=== PATIENT | female | born 1965 | race Caucasian/White ===

== ENCOUNTER 2019-06-03 04:28 | Inpatient (IN) ==
[2019-06-03] MEDS ORDERED: MoRPHine SULFATE 4 MG/ML 1 ML CARP\\VIAL IV STA ×2 (04:43→06:39)
[2019-06-03] MEDS ORDERED: ONDANSETRON INJ 2 MG/ML 2 ML VIAL IV STA (04:43)
[2019-06-03] MEDS ORDERED: KETOROLAC 30 MG/ML VIAL IV STA (04:44)
[2019-06-03] MEDS ORDERED: SODIUM CHLORIDE 0.9% 1000ML 1,000 ML IV SCH (04:45)
[2019-06-03 04:59] LABS: Basophils # (auto) 0.03 K/uL (0-0.2); Basophils % (auto) 0.4 %; Eosinophils # (auto) 0.07 K/uL (0-0.5); Hematocrit (blood only) 36.2 % (37-47); Hemoglobin 12.5 g/dL (12.0-16.0); Immature Granulocytes # (auto) 0.01 K/uL (0.00-0.02); Immature Granulocytes % (auto) 0.1 %; Lymphocytes # (auto) 2.72 K/uL (1.2-3.4); Lymphocytes % (auto) 39.4 %; Mean Corpuscular Hgb Conc 34.5 g/dL (32-36); Mean Corpuscular Volume 86.6 fL (80-100); Monocytes # (auto) 0.47 K/uL (0.11-0.59); Monocytes % (auto) 6.8 %; Neutrophils % (auto) 52.3 %; Platelet Count 261 K/uL (130-400); RDW Coefficient of Variation 12.9 % (11.5-14.5); RDW Standard Deviation 41.2 fL (36.4-46.3); Red Blood Count 4.18 M/uL (4.2-5.4)
[2019-06-03 05:17] LABS: Albumin Level 3.8 gm/dl (3.4-5.0); BUN Creatinine Ratio 17.8 (10-20); Calcium 8.5 mg/dl (8.5-10.1); Creatinine Clr Calc Pharmacy 79.7 ml/min; Est GFR (African American) 103.1; Est GFR (Non-African American) 88.9; Potassium 3.5 mmol/L (3.5-5.1)
[2019-06-03 05:19] LABS: Albumin Globulin Ratio 1.1 (0.9-2); Bilirubin,Total 0.3 mg/dl (0.2-1); Globulin 3.6 gm/dl (2.5-4.0); Total Protein 7.4 gm/dl (6.4-8.2)
[2019-06-03] MEDS ORDERED: cefTRIAXone SODIUM 2,000 MG/70 ML BAG IV STA (05:52)
[2019-06-03 06:34] LABS: Appearance Urine Clear (Clear); Bilirubin Urine Negative (Negative); Blood Urine Negative (Negative); Color Urine Yellow; Glucose Urine UA Negative (Negative); Ketones Urine Negative (Negative); Leukocyte Esterase Urine Negative (Negative); Nitrite Urine Negative (Negative); Protein Urine Negative (Negative); Specific Gravity Urine 1.021 (1.000-1.030); Urobilinogen Urine Negative (Negative); pH Urine 6.5 (4.5-7.5)
--- NOTE | 2019-06-03 07:04 | CT Scan Report ---
CT OF THE ABDOMEN AND PELVIS WITHOUT CONTRAST CLINICAL HISTORY: Right flank pain. Right lower quadrant pain. COMPARISON STUDY: No previous studies for comparison. TECHNIQUE: Axial images of the abdomen and pelvis were obtained without IV contrast. Images were revi ewed in the axial, sagittal, and coronal planes. Automated exposure control was utilized for the federico dy. A dose lowering technique was utilized adhering to the principles of ALARA. FINDINGS: Lung bases are clear. A 7 mm x 6 mm proximal right ureteral calculus results in moderate ri ght hydronephrosis. There is mild right perinephric infiltration. No additional urinary calculi are i dentified. A water attenuation 1.5 cm lesion within the lower pole of the left kidney is suboptimally assessed on this unenhanced exam but favors a cyst. Unenhanced images of the liver, spleen, adrenal glands and pancreas are normal. There is no biliary or pancreatic ductal dilatation. No evidence for a bowel obstruction. The appendix is normal. There is no ascites or lymphadenopathy. No suspicious os seous lesions are noted. IMPRESSION: 7 mm x 6 mm proximal right ureteral calculus which results in moderate right hydronephro sis. Electronically signed by: Nsaeem Samuel M.D. 06/03/2019 7:02 AM
--- NOTE | 2019-06-03 07:32 | History and Physical Report ---
DATE OF ADMISSION: 06/03/2019 CHIEF COMPLAINT: Right flank pain. HISTORY OF PRESENT ILLNESS: This 54-year-old female with past medical history significant for hyperlipidemia, history of kidney stones in the past, small stone which she passed on her own, presents with severe right flank pain since 3:00 a.m. today. The pain is radiating to her groins associated with nausea. Denies any fever, chills. No burning micturition, no hematuria. Currently, resting comfortably and hemodynamically stable. Imaging studies unofficial report show a 7 mm right kidney stone with hydronephrosis. Denies any headache, no dizziness, no blurred vision, no earache, no runny nose, no sore throat, no difficulty swallowing. No night sweats. No recent weight gain, weight loss. No cough, no chest pain or shortness of breath. No diarrhea, no constipation, no blood in stools, no black stools. No easy bruising or easy bleeding. No rash, no swelling in the legs, ambulates okay. ALLERGIES: BACTRIM. PAST MEDICAL HISTORY: As mentioned above. PAST SURGICAL HISTORY: , left arm fracture. MEDICATIONS: She is on Crestor 5 mg daily. FAMILY HISTORY: Significant for mother had breast cancer. Father had adenocarcinoma, unknown primary, diabetes, CAD, hypertension, hyperlipidemia. Paternal grandfather had heart disorder. Paternal grandmother had diabetes. SOCIAL HISTORY: Former smoker, quit in 1991. Smoked 1 pack a day for 8 years. Alcohol, social drinking. No drug use. REVIEW OF SYMPTOMS: As per HPI. Rest of review of systems negative. PHYSICAL EXAMINATION: GENERAL: The patient is of moderate build, not in acute distress. VITAL SIGNS: Temperature 36.5, pulse 61, respiratory rate 16, blood pressure 163/90, oxygen 98% on room air. HEENT: No pallor, no icterus. Pupils equal, round, and reactive to light. NECK: No JVD, no neck masses, no carotid bruits. CARDIOVASCULAR: S1, S2 heard, regular rate and rhythm, no murmur, no gallop. RESPIRATORY SYSTEM: Normal AP diameter. No accessory muscle use. No wheezing, no crackles. ABDOMEN: Soft, bowel sounds present. Right CVA tenderness present, no guarding, no rigidity. CENTRAL NERVOUS SYSTEM: Cranial nerves II-XII grossly intact. Nonfocal. EXTREMITIES: No edema, no erythema. LABORATORY DATA: WBC 6.9, hemoglobin 12.5, hematocrit 36.2, platelets 261. Sodium 141, potassium 3.5, chloride 107, bicarbonate 27, BUN 13, creatinine 0.7, serum glucose 117, calcium 8.5, total bilirubin 0.3, AST 15, ALT 25, alkaline phosphatase 72, lipase 134. Urinalysis is pending. CT of abdomen and pelvis, unofficial report, 7 mm right kidney stone with moderate hydronephrosis. ASSESSMENT AND PLAN: This is a 54-year-old who presents with right renal colic. 1. Right renal colic, unofficial report of CAT scan shows a 7 mm right kidney stone with moderate hydronephrosis. We will follow the official report. The patient is afebrile, no leukocytosis. question of perinephric stranding. Rocephin was given in the ER. We will continue the patient on IV fluids, n.p.o., pain control, IV antibiotics. Follow UA.Urology consult for possible cystoscopy. Monitor on medical floor. 2. Hyperlipidemia. Continue statin. 3. Deep vein thrombosis prophylaxis, sequential compression devices. DISPOSITION: Admit to medical floor. Expect discharge home and follow with family doctor. Level 1 full code. MTDD
[2019-06-03] MEDS ORDERED: ACETAMINOPHEN 325 MG TAB PO PRN (07:52)
[2019-06-03] MEDS: SODIUM CHLORIDE 0.9% 1000ML 1,000 ML IV SCH ×3 (08:22→23:07)
[2019-06-03] MEDS: ONDANSETRON INJ 2 MG/ML 2 ML VIAL IV PRN ×2 (08:36→23:44)
[2019-06-03] MEDS: MoRPHine SULFATE 4 MG/ML 1 ML CARP\\VIAL IV PRN ×4 (08:36→21:40)
[2019-06-03] MEDS ORDERED: ROSUVASTATIN CALCIUM 5 MG TAB PO SCH (09:00)
--- NOTE | 2019-06-03 12:04 | XRay Report ---
KUB CLINICAL HISTORY: Right ureteral stone. FINDINGS: 2 AP supine abdominal radiographs are correlated with abdominal CT performed the same 2018. There is a nonobstructed abdominal bowel gas pattern. Mild colonic fecal retention is observed. There is unchanged appearance of a right proximal ureteral stone as compared to today's earlier CT s can. This projects below the right transverse process of L3. No additional calcifications are clearly seen projecting over either kidney. Phleboliths are observed in the pelvis. The bony structures appe ar intact. IMPRESSION: A 6 mm right proximal ureteral stone is unchanged from today's CT scan. Electronically signed by: Robert Vasquez M.D. 06/03/2019 12:02 PM
--- NOTE | 2019-06-03 14:12 | Urology Consultation ---
Date of Consultation June 03, 2019 Assessment & Plan (1) Calculus of proximal right ureter: 54yo F with 7mm prox right ureteral stone, moderate hydronephrosis. Pain controlled with IV medications currently. KUB - great visibility. Nontoxic appearing on evaluation today. We discussed options for ureteroscopy vs ESWL tomorrow. Pt is agreeable to proceed with right ESWL tomorrow. Fleets Enema to be given at 8PM tonight, low fat diet for dinner then NPO after midnight. We will plan for early AM discharge to accommodate OR time, [facility] We will arrange for KUB prior to discharge from hospital. I spoke with Dr. Portillo in person and she is agreeable to plan for early AM discharge to accomodate. Thank you for allowing us to participate in Ms. Cash's acute care. Outpatient followup has already been arranged. History of Present Illness Reason for Consultation: ureteral stone Requesting Physician: Dr Portillo Attending Physician: Aury Portillo MD History of Present Illness 54yo F with PMHx hyperlipidemia and stones, admitted through [facility] today for sever right flank pain, radiating to groin with associated nausea. at bedside at time of evaluation. CT reveals 7x6mm prox right ureteral stone with moderate hydro, mild perinephric stranding. No further renal or ureteral stones. She is requiring IV pain control for relief, nontoxic appearing. WBC and Cr within normal limits. UA negative, not suspicious for UTI. Hx of 3mm stone with spontaneous passage approx 7 years ago. No further issues. Denies hematuria or dysuria. Denies n/v - light appetite for now. No other issues or concerns. Allergies Allergy/AdvReac Type Severity Reaction Status Date / Time Bactrim Allergy Intermediate RASH Verified 11/25/14 06:25 sulfamethoxazole Allergy Intermediate RASH Verified 06/03/19 05:18 trimethoprim Allergy Intermediate RASH Verified 06/03/19 05:18 Home Medications Home Medications Medication Instructions Recorded Confirmed Type rosuvastatin 5 mg PO DAILY 06/03/19 06/03/19 History Patient History Medical History Hyperlipidemia Social History Preferred Language: Albanian Communication Ability: Effective [employer] Trailers Required: No Beliefs That Will Affect Care: None Current Living Situation: Spouse Feels Safe at Home: Yes Smoking Status: Former smoker Second Hand Exposure: No ; Hx Alcohol Use: Yes Hx Substance Use: No Review of Systems Review of Systems: Constitutional: Denies fever, chills, sweats, malaise Eyes: Denies problem reported ENMT: Denies dizziness Resp: Denies cough, Denies shortness of breath CV: Denies JVD GI: Denies nausea/vomiting : + flank pain, denies dysuria, urgency, frequency, hematuria MS: Denies swelling, stiffness Integ: Denies rash, erythema Neuro: Denies falls, weakness Psych: Denies behavior change Endo: Denies polyphagia, polydipsia Heme: Denies easy bleeding Physical Exam Constitutional: no acute distress and not ill appearing Eyes: no nystagmus ENMT: Ears: no hearing impairment Neck: trachea midline Respiratory: no respiratory distress and no cough Cardiovascular: Vessels: no JVD Chest (Breasts): Chest: normal inspection of chest Gastrointestinal (Abdomen): Inspection/Auscultation: abdomen not distended and no abdominal edema Percussion/Palpation: abdomen soft; abdomen nontender Musculoskeletal: Head/Neck/Chest: normocephalic and head atraumatic Skin: no rashes, warm and dry Neurologic: awake; not confused and not obtunded Psychiatric: Orientation: alert and oriented x 3 Eye Contact: good eye contact Affect: no depressed affect Lymphatic: no lymphadenopathy and no lymphedema Results & Data Vital Signs (Past 12 Hours) Vital Signs Temp Pulse Pulse Resp BP BP Pulse Ox 06/03/19 07:58 36.4 C L 52 L 18 165/89 H 99 06/03/19 07:13 61 15 111/59 L 06/03/19 06:02 61 16 163/90 H 98 06/03/19 05:13 58 L 14 165/90 H 97 06/03/19 04:33 36.5 C 77 20 156/87 H 97
--- NOTE | 2019-06-03 15:52 | XRay Report ---
XR chest 1V portable CLINICAL HISTORY: preop preoperative evaluation COMPARISON STUDY: No previous studies for comparison. FINDINGS: The bones soft tissues and hemidiaphragms are normal. The cardiomediastinal silhouette is n ormal. The lungs are clear. The pulmonary vasculature is normal. IMPRESSION: Negative chest. The above report was generated using voice recognition software. It may contain grammatical, syntax or spelling errors. Electronically signed by: Dalton Garcia M.D. 06/03/2019 3:51 PM
--- NOTE | 2019-06-03 16:13 | Hospitalist Progress Note ---
Date of Service June 03, 2019 Assessment & Plan (1) Calculus of proximal right ureter: Presented with severe right-sided back pain The abdomen pelvis shows obstructed 7 mm right approximate ureteric stone with mild right-sided hydroureteronephrosis No evidence of infection or sepsis, afebrile hemodynamically stable, normal white count, renal function remains within normal limits Urology consulted, appreciate input Patient will benefit with lithotripsy procedure Scheduled for outpatient lithotripsy procedure at the [facility] at 8 AM Patient needs to be discharged from [facility] at 7 AM, need to arrive at [facility] no later than 7:30 AM Patient has been requiring intermittent IV morphine for intractable renal colic Started with IV emetics for nausea Will observe patient overnight -continue IV fluids pain control Patient will be discharged in a.m. Patient will go from [facility] to [facility] tomorrow morning Diet ordered by urology, Will be n.p.o. past midnight for lithotripsy plus /minus ureteroscopy-[facility] physician group urology team tomorrow at 8 a.m. 06/04/2019 Patient's discharge paperwork was done Discharge order placed for 7 AM in the morning-to avoid any delay for the patient to proceed for the planned urologic procedure Plan of care updated to the patient by both myself and the urology team CODE STATUS: Full code DVT prophylaxis: SCD and teds, avoid anticoagulation as patient is scheduled for elective urologic procedure tomorrow morning Disposition: Discharge at 7 AM tomorrow morning DC paperwork, discharge order already scheduled Family physician follow-up with Dr. Velazquez in a week Urology follow-up post procedure as per protocol Subjective Continues to have left flank pain, ureteric colic, getting relief with current pain medication regimen, no fever chills Did not noted any blood in urine Nausea has resolved after adequate pain control Appreciate input from urology Patient will have urology procedure scheduled at 8:00 tomorrow at [facility] Patient will stay in hospital overnight as requiring intermittent IV pain medication for pain control Plan to discharge patient at 7 AM. Need to arrive at the [facility] no later than 7:30 AM, for scheduled lithotripsy procedure for right- sided obstructed ureteric stone at 8 AM tomorrow 06/04/2019 Physical Exam Constitutional: WD/WN, vitals as above + acute distress (in Moderate distress secondary to right flank pain ) Eyes: PERRL, conjunctivae normal, anicteric sclerae ENMT: external ear and nose normal, oropharynx normal Neck: trachea midline, no thyromegaly Respiratory: normal respiratory effort, lungs clear to auscultation Cardiovascular: RRR, no murmur, no edema Gastrointestinal (Abdomen): Inspection/Auscultation: normal bowel sounds Percussion/Palpation: + abdomen tender (Right CVA tenderness) and abdomen soft Right-sided flank pain/positive CVA tenderness Musculoskeletal: no cyanosis or clubbing, extremities motor strength 5/5 Skin: no rashes, warm and dry Neurologic: PERRL, EOMI, accommodation nl, no face palsy, no dysarthria Psychiatric: A+Ox3, euthymic affect Results & Data Vital Signs (Past 12 Hours) Vital Signs Temp Pulse Pulse Resp BP BP Pulse Ox 06/03/19 15:34 37.0 C 64 16 147/77 H 96 06/03/19 07:58 36.4 C L 52 L 18 165/89 H 99 06/03/19 07:13 61 15 111/59 L 06/03/19 06:02 61 16 163/90 H 98 06/03/19 05:13 58 L 14 165/90 H 97 06/03/19 04:33 36.5 C 77 20 156/87 H 97
[2019-06-03] MEDS ORDERED: PROMETHAZINE HCL 12.5 MG in SODIUM CHLORIDE 0.9% 50 ML IV PRN (16:53)
--- NOTE | 2019-06-04 00:34 | Emergency Department Note ---
History of Present Illness General Chief complaint: Flank Pain Stated complaint: R SIDE FLANK PAIN,NAUSEA Time Seen by Provider: 06/03/19 04:36 History of Present Illness Maximum Pain Intensity: 7 This is a 54-year-old female presenting to the emergency department for evaluation of right side abdominal pain over the past 2 days. She had a small amount of pain yesterday, which was rated at a low level. She states tonight the pain is constant and much worse, rating the discomfort a 7/10. She does have some nausea without vomiting. No fevers, chills, chest pain, chest tightness, shortness of breath. She feels like she has been using the bathroom as normal. She does have a history of kidney stones in the past and feels this may be similar. She has not had significant improvement of symptoms of pain with [id number] analgesics. 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 Attendant Required: No Beliefs That Will Affect Care: None Current Living Situation: Spouse Feels Safe at Home: Yes Smoking Status: Former smoker Second Hand Exposure: No ; Hx Alcohol Use: Yes Hx Substance Use: No Review of Systems A total of 10 systems reviewed and were otherwise negative Physical Exam Vital Signs Vital Signs - 24 hr 06/03/19 04:33 06/03/19 05:13 06/03/19 06:02 Temperature 36.5 C Temperature Source Oral Sepsis Recent Fever Within 48 Hours No Sepsis Action Taken by Nursing No Action Required Pulse Rate 77 Pulse Rate [Finger] 58 L 61 Pulse Rhythm Regular Pulse Strength Normal Respiratory Rate 20 14 16 Respiratory Effort / Characteristics Non-Labored Spontaneous Respiratory Depth Normal Blood Pressure 156/87 H Blood Pressure [Left Arm] 165/90 H 163/90 H Blood Pressure Mean 110 Blood Pressure Mean [Left Arm] 115 114 Blood Pressure Position Sitting Pulse Oximetry 97 97 98 Oxygen Delivery Method Room Air Room Air Room Air VITALS: Vitals are noted on the nurse's note and reviewed by myself. Vital signs stable. GENERAL: Well-developed, well-nourished, white female who appears moderately uncomfortable on exam. HEART: Regular rate and rhythm without murmurs gallops or rubs. LUNGS: Clear to auscultation bilaterally without wheezes, rales or rhonchi. No retractions or accessory muscle use. ABDOMEN: Positive normal bowel sounds x 4. Soft, nontender, without masses or organomegaly. No guarding or rebound tenderness. No CVA tenderness. No rash. MUSCULOSKELETAL: No muscle atrophy, erythema, or edema noted. Full range of motion in all extremities. NEURO: Patient was alert and oriented to person place and time. CN II through XII grossly intact. SKIN: The skin was without rashes, erythema, edema, or bruising. Capillary refill less than 2 seconds. Course Administered Medications Acetaminophen (Tylenol) 650 mg PO Q4H PRN PRN Reason: pain/fever Stop: 07/03/19 07:51 Last Admin: 06/03/19 23:44 Dose: 650 mg Documented by: [id number] Sodium Chloride (Nss 1000ml) 1,000 mls @ 125 mls/hr IV .Q8H ANNIE Stop: 07/03/19 07:51 Last Admin: 06/03/19 23:07 Dose: 125 mls/hr Documented by: [id number] Infusion: 06/03/19 23:07 Dose: 125 mls/hr Documented by: [id number] Admin: 06/03/19 15:32 Dose: 125 mls/hr Documented by: [id number] Infusion: 06/03/19 15:32 Dose: 125 mls/hr Documented by: [id number] Admin: 06/03/19 08:22 Dose: 125 mls/hr Documented by: [id number] Promethazine HCl 12.5 mg/ (Sodium Chloride) 50.5 mls @ 202 mls/hr IV Q6H PRN PRN Reason: Nausea And Vomiting Stop: 07/03/19 16:52 Last Infusion: 06/03/19 19:08 Dose: 0 mls/hr Documented by: [id number] Admin: 06/03/19 17:50 Dose: 202 mls/hr Documented by: [id number] Morphine Sulfate (Morphine Sulfate) 3 mg IV Q3H PRN PRN Reason: Pain Stop: 06/17/19 07:51 Last Admin: 06/03/19 21:40 Dose: 3 mg Documented by: [id number] Admin: 06/03/19 17:43 Dose: 3 mg Documented by: [id number] Admin: 06/03/19 13:38 Dose: 3 mg Documented by: [id number] Admin: 06/03/19 08:36 Dose: 3 mg Documented by: [id number] Ondansetron HCl (Zofran) 4 mg IV Q6H PRN PRN Reason: Nausea Stop: 07/03/19 07:51 Last Admin: 06/03/19 23:44 Dose: 4 mg Documented by: [id number] Admin: 06/03/19 08:36 Dose: 4 mg Documented by: [id number] Rosuvastatin Calcium (Crestor) 5 mg PO DAILY ANNIE Stop: 07/03/19 08:59 Last Admin: 06/03/19 08:55 Dose: 5 mg Documented by: [id number] Discontinued Medications Sodium Chloride (Nss 1000ml) 1,000 mls @ 999 mls/hr IV .Q1H1M ANNIE Stop: 06/03/19 05:45 Last Infusion: 06/03/19 05:50 Dose: 0 mls/hr Documented by: [id number] Admin: 06/03/19 04:48 Dose: 999 mls/hr Documented by: [id number] Ceftriaxone Sodium (Rocephin) 2,000 mg in 70 mls @ 140 mls/hr IV NOW STA Stop: 06/03/19 06:21 Last Infusion: 06/03/19 06:34 Dose: 0 mls/hr Documented by: [id number] Admin: 06/03/19 06:02 Dose: 140 mls/hr Documented by: [id number] Ketorolac Tromethamine (Toradol) 30 mg IV NOW STA Stop: 06/03/19 04:45 Last Admin: 06/03/19 04:49 Dose: 30 mg Documented by: [id number] Morphine Sulfate (Morphine Sulfate) 4 mg IV NOW STA Stop: 06/03/19 04:44 Last Admin: 06/03/19 04:49 Dose: 4 mg Documented by: [id number] Morphine Sulfate (Morphine Sulfate) 4 mg IV NOW STA Stop: 06/03/19 06:40 Last Admin: 06/03/19 06:42 Dose: 4 mg Documented by: [id number] Ondansetron HCl (Zofran) 4 mg IV NOW STA Stop: 06/03/19 04:44 Last Admin: 06/03/19 04:49 Dose: 4 mg Documented by: [id number] Medical Decision Making Differential Diagnosis Differential diagnosis: Etiologies such as shingles, pyelonephritis/UTI, renal colic, appendicitis, diverticulitis, mesenteric ischemia, torsion, aortic pathology, infections, inflammatory bowel disease, bowel obstruction, PUD, biliary pathology, as well as others were entertained. Laboratory Data Result diagrams: 06/03/19 04:50 06/03/19 04:50 Lab Results 06/03/19 06/03/19 06/03/19 Range/Units 04:43 04:50 04:50 WBC 6.90 (4.8-10.8) K/uL RBC 4.18 L (4.2-5.4) M/uL Hgb 12.5 (12.0-16.0) g/dL Hct 36.2 L (37-47) % MCV 86.6 (80-100) fL MCH 29.9 (25-34) pg MCHC 34.5 (32-36) g/dL RDW Std Deviation 41.2 (36.4-46.3) fL RDW Coeff of Neelam 12.9 (11.5-14.5) % Plt Count 261 (130-400) K/uL MPV 9.0 (7.4-10.4) fL Immature Gran % (Auto) 0.1 % Neut % (Auto) 52.3 % Lymph % (Auto) 39.4 % [place] % (Auto) 6.8 % Eos % (Auto) 1.0 % Baso % (Auto) 0.4 % Immature Gran # (Auto) 0.01 (0.00-0.02) K/uL Neut # (Auto) 3.60 (1.4-6.5) K/uL Lymph # (Auto) 2.72 (1.2-3.4) K/uL [place] # (Auto) 0.47 (0.11-0.59) K/uL Eos # (Auto) 0.07 (0-0.5) K/uL Baso # (Auto) 0.03 (0-0.2) K/uL Sodium 141 (136-145) mmol/L Potassium 3.5 (3.5-5.1) mmol/L Chloride 107 (98-107) mmol/L Carbon Dioxide 27 (21-32) mmol/L Anion Gap 7.0 (3-11) BUN 13 (7-18) mg/dl Creatinine 0.76 (0.6-1.2) mg/dl Est Cr Clr Drug Dosing 79.7 ml/min Est GFR ( Amer) 103.1 Est GFR (Non-Af Amer) 88.9 BUN/Creatinine Ratio 17.8 (10-20) Glucose 179 H (70-99) mg/dl Calcium 8.5 (8.5-10.1) mg/dl Total Bilirubin 0.3 (0.2-1) mg/dl AST 15 (15-37) U/L ALT 25 (12-78) U/L Alkaline Phosphatase 72 (45-117) U/L Total Protein 7.4 (6.4-8.2) gm/dl Albumin 3.8 (3.4-5.0) gm/dl Globulin 3.6 (2.5-4.0) gm/dl Albumin/Globulin Ratio 1.1 (0.9-2) Lipase 134 (73-393) U/L Urine Color Urine Appearance (Clear) Urine pH (4.5-7.5) Ur Specific [place] (1.000-1.030) Urine Protein (Negative) Urine Glucose (UA) (Negative) Urine Ketones (Negative) Urine Blood (Negative) Urine Nitrite (Negative) Urine Bilirubin (Negative) Urine Urobilinogen (Negative) Ur Leukocyte Esterase (Negative) Hepatitis C Ab Screen Neg (Neg) 06/03/19 Range/Units 06:02 WBC (4.8-10.8) K/uL RBC (4.2-5.4) M/uL Hgb (12.0-16.0) g/dL Hct (37-47) % MCV (80-100) fL MCH (25-34) pg MCHC (32-36) g/dL RDW Std Deviation (36.4-46.3) fL RDW Coeff of Neelam (11.5-14.5) % Plt Count (130-400) K/uL MPV (7.4-10.4) fL Immature Gran % (Auto) % Neut % (Auto) % Lymph % (Auto) % [place] % (Auto) % Eos % (Auto) % Baso % (Auto) % Immature Gran # (Auto) (0.00-0.02) K/uL Neut # (Auto) (1.4-6.5) K/uL Lymph # (Auto) (1.2-3.4) K/uL [place] # (Auto) (0.11-0.59) K/uL Eos # (Auto) (0-0.5) K/uL Baso # (Auto) (0-0.2) K/uL Sodium (136-145) mmol/L Potassium (3.5-5.1) mmol/L Chloride (98-107) mmol/L Carbon Dioxide (21-32) mmol/L Anion Gap (3-11) BUN (7-18) mg/dl Creatinine (0.6-1.2) mg/dl Est Cr Clr Drug Dosing ml/min Est GFR ( Amer) Est GFR (Non-Af Amer) BUN/Creatinine Ratio (10-20) Glucose (70-99) mg/dl Calcium (8.5-10.1) mg/dl Total Bilirubin (0.2-1) mg/dl AST (15-37) U/L ALT (12-78) U/L Alkaline Phosphatase (45-117) U/L Total Protein (6.4-8.2) gm/dl Albumin (3.4-5.0) gm/dl Globulin (2.5-4.0) gm/dl Albumin/Globulin Ratio (0.9-2) Lipase (73-393) U/L Urine Color Yellow Urine Appearance Clear (Clear) Urine pH 6.5 (4.5-7.5) Ur Specific [place] 1.021 (1.000-1.030) Urine Protein Negative (Negative) Urine Glucose (UA) Negative (Negative) Urine Ketones Negative (Negative) Urine Blood Negative (Negative) Urine Nitrite Negative (Negative) Urine Bilirubin Negative (Negative) Urine Urobilinogen Negative (Negative) Ur Leukocyte Esterase Negative (Negative) Hepatitis C Ab Screen (Neg) Imaging Data Radiologist's Impression: CT OF THE ABDOMEN AND PELVIS WITHOUT CONTRAST CLINICAL HISTORY: Right flank pain. Right lower quadrant pain. COMPARISON STUDY: No previous studies for comparison. TECHNIQUE: Axial images of the abdomen and pelvis were obtained without IV contrast. Images were reviewed in the axial, sagittal, and coronal planes. Automated exposure control was utilized for the study. A dose lowering technique was utilized adhering to the principles of ALARA. FINDINGS: Lung bases are clear. A 7 mm x 6 mm proximal right ureteral calculus results in moderate right hydronephrosis. There is mild right perinephric infiltration. No additional urinary calculi are identified. A water attenuation 1.5 cm lesion within the lower pole of the left kidney is suboptimally assessed on this unenhanced exam but favors a cyst. Unenhanced images of the liver, spleen, adrenal glands and pancreas are normal. There is no biliary or pancreatic ductal dilatation. No evidence for a bowel obstruction. The appendix is normal. There is no ascites or lymphadenopathy. No suspicious osseous lesions are noted. IMPRESSION: 7 mm x 6 mm proximal right ureteral calculus which results in moderate right hydronephrosis. MDM Narrative Physical exam and history were performed. Nursing notes, EMR, and Medication List were personally reviewed. Patient appears to have flank pain bringing her to the ER tonight. On examination she appears comfortable. IV access was established and labs were obtained. The patient was hydrated with normal saline and given IV morphine, IV Zofran, and IV Toradol. CT scan was performed due to the patient's symptoms and past history. The patient's blood work is as above and was reviewed. Patient's blood work is as above and was reviewed. She does not have a significantly elevated white blood cell count, gross anemia, bandemia, or significant electrolyte imbalance. Transaminases are not diagnostic. CT scan was reviewed by myself and radiology and appears to show a 7 mm proximal right ureteral stone with moderate hydro. This would correlate with the patient's discomfort. There was some concern for stranding around the kidney and I did provide the patient IV Rocephin prior to urine returning. I discussed the patient findings and care options at length. Due to her proximal stone that appears obstructed with hydronephrosis do not feel she is well for discharge home. She is currently comfortable on IV analgesics be continued. I did discuss the case with the on-call hospitalist. Please see their dictation for further patient course, plan, and disposition. The chart was completed utilizing [employer] Voice Recognition Software. Grammatical errors, random word insertions, pronoun errors, and incomplete sentences are an occasional consequence of this system due to software limitations, ambient noise, and hardware issues. Any formal questions or concerns about the content, text, or information contained within the body of this dictation should be directly addressed to the provider for clarification. . Impression & Plan Calculus of proximal right ureter Discharge Plan Visit Data *Final* Discharge Date/Time: 06/03/19 07:37 Chief Complaint: Flank Pain Stated Complaint: R SIDE FLANK PAIN,NAUSEA ED Provider: Gabriella Vernon ED Midlevel Provider: Justin Flores Discharge Problem: Calculus of proximal right ureter Patient Disposition: Admitted As Inpatient Discharge Instructions Interventions: ED Discharge Assessment Last Done: 06/03/19 07:37
[2019-06-04 05:45] LABS: Basophils # (auto) 0.02 K/uL (0-0.2); Basophils % (auto) 0.2 %; Eosinophils # (auto) 0.01 K/uL (0-0.5); Eosinophils % (auto) 0.1 %; Hematocrit (blood only) 31.7 % (37-47); Hemoglobin 10.8 g/dL (12.0-16.0); Immature Granulocytes # (auto) 0.02 K/uL (0.00-0.02); Immature Granulocytes % (auto) 0.2 %; Lymphocytes # (auto) 1.88 K/uL (1.2-3.4); Lymphocytes % (auto) 16.9 %; Mean Corpuscular Hgb Conc 34.1 g/dL (32-36); Mean Corpuscular Volume 87.1 fL (80-100); Mean Platelet Volume 8.5 fL (7.4-10.4); Monocytes # (auto) 0.98 K/uL (0.11-0.59); Monocytes % (auto) 8.8 %; Neutrophils # (auto) 8.24 K/uL (1.4-6.5); Neutrophils % (auto) 73.8 %; Platelet Count 218 K/uL (130-400); RDW Coefficient of Variation 13.2 % (11.5-14.5); RDW Standard Deviation 42.8 fL (36.4-46.3); Red Blood Count 3.64 M/uL (4.2-5.4); White Blood Count 11.15 K/uL (4.8-10.8)
[2019-06-04 06:12] LABS: BUN Creatinine Ratio 12.4 (10-20); Calcium 7.9 mg/dl (8.5-10.1); Creatinine Clr Calc Pharmacy 51.3 ml/min; Est GFR (African American) 60.6; Est GFR (Non-African American) 52.2; Magnesium 1.8 mg/dl (1.8-2.4); Potassium 4.1 mmol/L (3.5-5.1)
[2019-06-04] MEDS: MoRPHine SULFATE 4 MG/ML 1 ML CARP\\VIAL IV PRN (06:41)
--- NOTE | 2019-06-04 07:22 | Discharge Summary ---
Date of Service June 04, 2019 Admission HPI Per Admitting Provider DICTATED BY: Pato Santos MD DATE OF ADMISSION: 06/03/2019 CHIEF COMPLAINT: Right flank pain. HISTORY OF PRESENT ILLNESS: This 54-year-old female with past medical history significant for hyperlipidemia, history of kidney stones in the past, small stone which she passed on her own, presents with severe right flank pain since 3:00 a.m. today. The pain is radiating to her groins associated with nausea. Denies any fever, chills. No burning micturition, no hematuria. Currently, resting comfortably and hemodynamically stable. Imaging studies unofficial report show a 7 mm right kidney stone with hydronephrosis. Denies any headache, no dizziness, no blurred vision, no earache, no runny nose, no sore throat, no difficulty swallowing. No night sweats. No recent weight gain, weight loss. No cough, no chest pain or shortness of breath. No diarrhea, no constipation, no blood in stools, no black stools. No easy bruising or easy bleeding. No rash, no swelling in the legs, ambulates okay. Principal Diagnosis RIGHT-SIDED OBSTRUCTED URETERIC STONE/RENAL COLIC Discharge Exam Constitutional WD/WN, vitals as above no acute distress (in Moderate distress secondary to right flank pain ) Eyes PERRL, conjunctivae normal, anicteric sclerae ENMT external ear and nose normal, oropharynx normal Neck trachea midline, no thyromegaly Respiratory normal respiratory effort, lungs clear to auscultation Cardiovascular RRR, no murmur, no edema Gastrointestinal (Abdomen) Inspection/Auscultation: normal bowel sounds Percussion/Palpation: + abdomen tender (Right CVA tenderness) and abdomen soft Musculoskeletal no cyanosis or clubbing, extremities motor strength 5/5 Skin no rashes, warm and dry Neurologic PERRL, EOMI, accommodation nl, no face palsy, no dysarthria Psychiatric A+Ox3, euthymic affect Discharge Data Allergies Allergy/AdvReac Type Severity Reaction Status Date / Time Bactrim Allergy Intermediate RASH Verified 11/25/14 06:25 sulfamethoxazole Allergy Intermediate RASH Verified 06/03/19 05:18 trimethoprim Allergy Intermediate RASH Verified 06/03/19 05:18 Consultations 06/03/19 05:58 ED Decision to Admit Stat 06/03/19 08:00 Consult Urology Routine Ordered Studies 06/03/19 04:43 CT abd pelvis wo con Urgent Hospital Course (1) Calculus of proximal right ureter: Presented with severe right-sided back pain The abdomen pelvis shows obstructed 7 mm right approximate ureteric stone with mild right-sided hydroureteronephrosis No evidence of infection or sepsis, afebrile hemodynamically stable, normal white count, renal function remains within normal limits Urology consulted, appreciate input Patient will benefit with lithotripsy procedure Scheduled for outpatient lithotripsy procedure at the [facility] at 8 AM Patient needs to be discharged from [facility] at 7 AM, need to arrive at [facility] no later than 7:30 AM Patient has been requiring intermittent IV morphine for intractable renal colic Started with IV emetics PRN for nausea pt was observe overnight -continue IV fluids pain control Patient will go from [facility] to [facility] tomorrow morning Diet ordered by urology, has been n.p.o. past midnight for lithotripsy plus /minus ureteroscopy-[facility] physician group urology team tomorrow at 8 a.m. 06/04/2019 Pt is Discharged this morning CODE STATUS: Full code DVT prophylaxis: SCD and teds, avoid anticoagulation as patient is scheduled for elective urologic procedure tomorrow morning Disposition: Discharged at 7 AM today DC paperwork, discharge order already scheduled Family physician follow-up with Dr. Velazquez in a week Urology follow-up post procedure as per protocol Total Time Total Time Spent Total Time Spent (In Minutes): appox 35 min Total Time Includes: Discharge Planning and Medication Reconciliation Discharge Plan Discharge Items Patient Disposition: Home - Self-Care Reason For Visit: R SIDE FLANK PAIN,NAUSEA Discharge Diagnosis: RIGHT-SIDED OBSTRUCTED URETERIC STONE/RENAL COLIC Discharge Goals: Decrease discomfort and Diagnostic testing Activity: Resume your previous activity Non-emergency contact: Primary Care Provider Call non-emergency contact if: you have any medication questions Follow-up/Referrals: Eagle Huff MD [Physician] - Rosio Velazquez MD [Primary Care Provider] - (Hospital follow-up in 1 week) Diet: Regular Addtl Provider Instructions: Follow-up with urology as per recommendation after the procedure Hospital follow-up with family physician in 1 week, office will call with appointment Prescriptions: Continued rosuvastatin 5 mg tablet 5 mg PO DAILY RF: 0 Stand-Alone Forms: [facility] [place] Discharge Orders: Discharge Order (Routine); Ordered 06/03/19 Ordered By: Aury Portillo Admission Data Admit Date/Time: 06/03/19 06:25 Attending Provider: Aury Portillo Admit Provider: Pato Santos Primary Care Provider: Rosio Velazquez Other Providers: Pato Santos ; Eagle Huff Service: Surgical Services Other Interventions: Discharge Summary Assessment (RN) Last Done: 06/04/19 05:30 DC Date/Time DO NOT enter until pt leaves facility: 06/04/19 06:45
== END 2019-06-04 06:45 | disposition home or self-care (01) | DRG 694 ==
LOC: ED 04:28 → 3N 06:25
DX: N13.2 Hydronephrosis with renal and ureteral calculous obstruction; Z87.442 Personal history of urinary calculi; Z88.8 Allergy status to other drugs, medicaments and biological substances; E78.5 Hyperlipidemia, unspecified; Z88.2 Allergy status to sulfonamides; Z87.891 Personal history of nicotine dependence

== ENCOUNTER 2019-06-08 15:06 | Observation (INO) ==
[2019-06-08] MEDS ORDERED: KETOROLAC 30 MG/ML VIAL IV STA (15:31)
[2019-06-08] MEDS ORDERED: SODIUM CHLORIDE 0.9% 1000ML 1,000 ML IV ONE (15:31)
--- NOTE | 2019-06-08 15:39 | Emergency Department Note ---
History of Present Illness General Chief complaint: Kidney Stone Stated complaint: KIDNEY STONES Time Seen by Provider: 06/08/19 15:11 History of Present Illness Maximum Pain Intensity: 7 This 54-year-old female presents the ER with chief complaint of persistent right flank pain and now diffuse abdominal pain. The patient was seen in the emergency room on and had a 6 mm stone in the right proximal ureter. She had a lithotripsy performed on Friday to break up the stone. She has not visualized any stones when she has been straining her urine. The patient states that she has been on pain medication since and has not had a bowel movement since last Friday. She has been trying MiraLAX and stool softeners without any relief. She is passing some gas. She states that she lays on her left side it does help with the pain. She feels like her belly is "distended". Patient last took oxycodone at 3:30 AM. She took Tylenol at 7 AM. The patient had one episode of vomiting on Friday night. Home Medications Home Medications Medication Instructions Recorded Confirmed Type rosuvastatin 5 mg PO DAILY 06/03/19 06/08/19 History oxycodone-acetaminophen [Percocet] 1 tab PO Q6H PRN #20 tab 06/04/19 06/08/19 Rx acetaminophen [Tylenol Extra 500 mg PO QID PRN 06/08/19 06/08/19 History Strength] Allergies Allergy/AdvReac Type Severity Reaction Status Date / Time Bactrim Allergy Intermediate RASH Verified 11/25/14 06:25 sulfamethoxazole Allergy Intermediate RASH Verified 06/08/19 16:11 trimethoprim Allergy Intermediate RASH Verified 06/08/19 16:11 Past Med/Surg History Medical History Hyperlipidemia Surgical History delivery delivered (Acute) History of arthroscopy (Acute) left arm Social History Preferred Language: Khmer Communication Ability: Effective 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 Beliefs That Will Affect Care: None Current Living Situation: Spouse Feels Safe at Home: Yes Smoking Status: Former smoker Second Hand Exposure: No ; Hx Alcohol Use: Yes Hx Substance Use: No Review of Systems A total of 10 systems reviewed and were otherwise negative Physical Exam Vital Signs Vital Signs - 24 hr 06/08/19 15:07 Temperature 36.7 C Temperature Source Oral Sepsis Recent Fever Within 48 Hours No Sepsis Action Taken by Nursing No Action Required Pulse Rate 111 H Pulse Rhythm Regular Pulse Strength Normal Respiratory Rate 20 Respiratory Effort / Characteristics Non-Labored Spontaneous Respiratory Depth Normal Respiratory Pattern Regular Blood Pressure 139/85 Blood Pressure Mean 103 Blood Pressure Position Sitting Pulse Oximetry 96 Oxygen Delivery Method Room Air GENERAL: 54-year-old white female appears in no acute distress. MENTAL Status: Alert and oriented x3. MOUTH: Mucosa is moist NECK: Supple, no lymphadenopathy noted. No carotid bruits noted. LUNGS: Clear auscultation without wheezes rales or rhonchi. CARDIAC: Regular rate and rhythm without murmur. Pulses is full and equal throughout. BACK: No CVA tenderness noted. ABDOMEN: No audible bowel sounds on the left side. Right side bowel sounds were hypoactive. Soft, tenderness to palpation in the right flank area otherwise nontender to palpation without organomegaly or masses. EXTREMITIES: No cyanosis or edema noted. Course Administered Medications Discontinued Medications Sodium Chloride (Nss 1000ml) 1,000 mls @ 999 mls/hr IV .Q1H1M ONE Stop: 06/08/19 16:31 Last Admin: 06/08/19 15:51 Dose: 999 mls/hr Documented by: [id number] Ketorolac Tromethamine (Toradol) 30 mg IV NOW STA Stop: 06/08/19 15:32 Last Admin: 06/08/19 15:51 Dose: 30 mg Documented by: [id number] Medical Decision Making Differential Diagnosis Kidney stone, constipation, small bowel obstruction Medical Records Attestation: I reviewed the patient's medical records. Home Medications Current Medication List: was personally reviewed by me Imaging Data Attestation: I personally reviewed and interpreted this imaging study as follows: My Impression: Right ureteral calculi noted Radiologist's Impression: XR KUB/Abdomen 1 view CLINICAL HISTORY: Constipation, abdominal pain pain COMPARISON STUDY: 06/03/2019 FINDINGS: Nonobstructive bowel pattern. Moderate increase in fecal load within the ascending and proximal to mid transverse colonic region. 6 mm calculus of the proximal right ureter is unchanged and overlies the right transverse process of L3. Several pelvic vascular calcifications are unchanged. IMPRESSION: 1. Unchanged proximal right ureteral calculus. 2. Nonobstructive bowel pattern. 3. Moderate increase in fecal load of the proximal to mid colon. The above report was generated using voice recognition software. It may contain grammatical, syntax or spelling errors. Electronically signed by: Dalton Garcia M.D. 06/08/2019 4:07 PM Dictated: 06/08/19 1605 Transcribed: 06/08/19 1605 Blood Pressure Blood Pressure Findings: Normal blood pressure MDM Narrative The patient was evaluated. IV access was obtained. The patient was given 1 L normal saline wide open. She was given Toradol 30 mg IV. KUB was ordered interpreted by the radiologist and myself as above with a 6 mm stone still visible at the level of the L2 transverse process on the right. There is also moderate fecal load within the ascending and transverse colon. The patient was informed of the findings. Dr. Gay was consulted and stated that the patient should be admitted through medicine and placed n.p.o. after midnight and the hospital should consult them after admission. The hospitalist was consulted for admission. The patient will be admitted under CBC and differential, renal profile, LFTs, urinalysis were ordered. Impression & Plan Calculus of proximal right ureter, Intractable abdominal pain Discharge Plan Visit Data Chief Complaint: Kidney Stone Stated Complaint: KIDNEY STONES ED Provider: Silverio Rodriguez ED Midlevel Provider: Nae Garcia Discharge Problem: Calculus of proximal right ureter, Intractable abdominal pain Patient Disposition: Being Evaluated by Hospitalist Condition: Good Forms Stand Alone Forms: [facility], Important Visit Information Prescriptions Prescriptions: No Action rosuvastatin 5 mg tablet 5 mg PO DAILY RF: 0 oxycodone-acetaminophen [Percocet] 7.5-325 mg tablet 1 tab PO Q6H PRN (Reason: pain) Qty: 20 RF: 0 acetaminophen [Tylenol Extra Strength] 500 mg Tablet 500 mg PO QID PRN (Reason: Pain) RF: 0 Referrals Referrals: Rosio Velazquez MD [Primary Care Provider] -
--- NOTE | 2019-06-08 16:08 | XRay Report ---
XR KUB/Abdomen 1 view CLINICAL HISTORY: Constipation, abdominal pain pain COMPARISON STUDY: 06/03/2019 FINDINGS: Nonobstructive bowel pattern. Moderate increase in fecal load within the ascending and prox imal to mid transverse colonic region. 6 mm calculus of the proximal right ureter is unchanged and overlies the right transverse process of L3. Several pelvic vascular calcifications are unchanged. IMPRESSION: 1. Unchanged proximal right ureteral calculus. 2. Nonobstructive bowel pattern. 3. Moderate increase in fecal load of the proximal to mid colon. The above report was generated using voice recognition software. It may contain grammatical, syntax or spelling errors. Electronically signed by: Dalton Garcia M.D. 06/08/2019 4:07 PM
[2019-06-08 17:09] LABS: Basophils # (auto) 0.02 K/uL (0-0.2); Basophils % (auto) 0.2 %; Eosinophils # (auto) 0.05 K/uL (0-0.5); Eosinophils % (auto) 0.5 %; Hematocrit (blood only) 34.9 % (37-47); Immature Granulocytes # (auto) 0.01 K/uL (0.00-0.02); Immature Granulocytes % (auto) 0.1 %; Lymphocytes # (auto) 1.58 K/uL (1.2-3.4); Lymphocytes % (auto) 16.6 %; Mean Corpuscular Hemoglobin 29.6 pg (25-34); Mean Corpuscular Hgb Conc 34.4 g/dL (32-36); Mean Platelet Volume 8.6 fL (7.4-10.4); Monocytes # (auto) 0.78 K/uL (0.11-0.59); Monocytes % (auto) 8.2 %; Neutrophils # (auto) 7.09 K/uL (1.4-6.5); Neutrophils % (auto) 74.4 %; Platelet Count 243 K/uL (130-400); RDW Coefficient of Variation 12.5 % (11.5-14.5); Red Blood Count 4.06 M/uL (4.2-5.4); White Blood Count 9.53 K/uL (4.8-10.8)
[2019-06-08 17:27] LABS: Albumin Level 3.4 gm/dl (3.4-5.0); BUN Creatinine Ratio 9.5 (10-20); Calcium 8.8 mg/dl (8.5-10.1); Creatinine Clr Calc Pharmacy 58.3 ml/min; Est GFR (African American) 71.4; Est GFR (Non-African American) 61.6; Potassium 3.7 mmol/L (3.5-5.1)
[2019-06-08 17:29] LABS: Albumin Globulin Ratio 0.8 (0.9-2); Bilirubin,Total 0.5 mg/dl (0.2-1); Globulin 4.2 gm/dl (2.5-4.0); Total Protein 7.6 gm/dl (6.4-8.2)
--- NOTE | 2019-06-08 18:11 | History & Physical Report ---
Date of Service June 08, 2019 Assessment & Plan (1) Renal calculi: -Admit to [facility] -Patient presenting from home with reports of persistent right flank pain after undergoing lithotripsy on 06/04 for a 6 mm proximal right ureteral calculi -In the ED, KUB x-ray demonstrates unchanged right ureteral calculi -Renal function stable -UA does not suggest infection -Urology notified by the ED, planning on intervention tomorrow -IVF, pain control -N.p.o. after midnight (2) Constipation: -Likely due to narcotic use -Give Dulcolax tonight, start bowel regimen with MiraLAX and Colace tomorrow (3) Dyslipidemia: -Continue statin (4) DVT prophylaxis: -SCDs, ambulate History of Present Illness Chief Complaint: Right flank pain Primary Care Provider: Rosio Velazquez MD 54-year-old female who presents to the ED for evaluation of right flank pain. Patient was recently admitted to [facility] 06/03 through 06/04 after she was found to have a 6 mm proximal right ureteral calculi with moderate hydronephrosis. Patient underwent lithotripsy on 06/04 and patient was discharged the same day. Patient reports she has had continued pain since returning home. She denies hematuria or dysuria. Due to the pain, she has had nausea and one episode of vomiting. She denies hematemesis or coffee-ground emesis. No abdominal pain. No fevers or chills. She denies chest pain and shortness of breath. No lightheadedness, dizziness, diaphoresis, syncopal events. She reports constipation and has been taking MiraLAX and stool softeners however has not had a bowel movement. She reports that she is passing gas. In the ED, KUB shows unchanged 6 mm right ureteral calculus. Labs are unremarkable. Patient was given IVF and IV Toradol. Allergies Allergy/AdvReac Type Severity Reaction Status Date / Time Bactrim Allergy Intermediate RASH Verified 11/25/14 06:25 sulfamethoxazole Allergy Intermediate RASH Verified 06/08/19 16:11 trimethoprim Allergy Intermediate RASH Verified 06/08/19 16:11 Home Medications Home Medications Medication Instructions Recorded Confirmed Type rosuvastatin 5 mg PO DAILY 06/03/19 06/08/19 History oxycodone-acetaminophen [Percocet] 1 tab PO Q6H PRN #20 tab 06/04/19 06/08/19 Rx acetaminophen [Tylenol Extra 500 mg PO QID PRN 06/08/19 06/08/19 History Strength] Past Med/Surg History Medical History Dyslipidemia (Chronic) Surgical History History of (Chronic) Family History Mother Breast cancer Father Diabetes Heart disease Hypertension Social History Preferred Language: Arabic Communication Ability: Effective 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 Beliefs That Will Affect Care: None Current Living Situation: Spouse Other Information That Helps Us Care for You: No Feels Safe at Home: Yes Safety Concerns: Feels Safe At This Time Smoking Status: Former smoker Do You Dip or Chew Tobacco: No ; Second Hand Exposure: No ; Tobacco Cessation Education Requested by Patient: No Hx Alcohol Use: Yes Alcohol Intake Frequency: Rarely Hx Substance Use: No Review of Systems Review of Systems: ROS per HPI, all other systems reviewed and negative Physical Exam Constitutional: WD/WN, vitals as above Eyes: PERRL, conjunctivae normal, anicteric sclerae ENMT: external ear and nose normal, oropharynx normal Respiratory: normal respiratory effort, lungs clear to auscultation Cardiovascular: Rate/Rhythm: regular rate and regular rhythm Vessels: norm al peripheral pulses Extremities: no edema Gastrointestinal (Abdomen): normal bowel sounds, soft, nontender, no hepatosplenomegaly Musculoskeletal: no cyanosis or clubbing, extremities motor strength 5/5 Skin: no rashes, warm and dry Neurologic: PERRL, EOMI, accommodation nl, no face palsy, no dysarthria Psychiatric: A+Ox3, euthymic affect Genitourinary: no CVA tenderness Results & Data Vital Signs (Past 12 Hours) Vital Signs Temp Pulse Resp BP Pulse Ox 06/08/19 15:07 36.7 C 111 H 20 139/85 96 Laboratory Results Short CBC 06/08/19 Range/Units 16:54 WBC 9.53 (4.8-10.8) K/uL Hgb 12.0 (12.0-16.0) g/dL Hct 34.9 L (37-47) % Plt Count 243 (130-400) K/uL BMP 06/08/19 16:54 Sodium 139 Potassium 3.7 Chloride 105 Carbon Dioxide 28 BUN 10 Creatinine 1.03 Glucose 97 Calcium 8.8 Liver Function 06/08/19 Range/Units 16:54 Total Bilirubin 0.5 (0.2-1) mg/dl AST 10 L (15-37) U/L ALT 19 (12-78) U/L Alkaline Phosphatase 85 (45-117) U/L Albumin 3.4 (3.4-5.0) gm/dl Urine 06/08/19 Range/Units 17:56 Urine Color Yellow Urine Appearance Clear (Clear) Urine pH 7.0 (4.5-7.5) Ur Specific Leland 1.007 (1.000-1.030) Urine Protein Negative (Negative) Urine Glucose (UA) Negative (Negative) Diagnostic Findings KUB X-RAY IMPRESSION: 1. Unchanged proximal right ureteral calculus. 2. Nonobstructive bowel pattern. 3. Moderate increase in fecal load of the proximal to mid colon. Code Status & VTE Plan VTE Prophylaxis Plan VTE Prophylaxis will be ordered: Yes Supervising Physician Co-Signing Physician Notes Pt was seen and examined. Agreed with Marybeth SCHNEIDER exam, assessment and plan. 54-year-old female with PMH of dyslipidemia, renal calculi who presents to the ED for evaluation of right flank pain. Patient was recently admitted on 06/03 through 06/04 for renal calculi and had lithotripsy done. She said that since discharged she continues to have right flank pain. KUB done today showed unchanged proximal right ureteral calculus. Moderate increase in fecal load of the proximal to mid colon. Urology consulted and plan for intervention urology procedure. Will make NPO after midnight. Continue IVF fluid and pain control. MD Charley
[2019-06-08 18:23] LABS: Appearance Urine Clear (Clear); Bilirubin Urine Negative (Negative); Blood Urine Negative (Negative); Color Urine Yellow; Glucose Urine UA Negative (Negative); Ketones Urine Trace (Negative); Leukocyte Esterase Urine Negative (Negative); Nitrite Urine Negative (Negative); Protein Urine Negative (Negative); Specific Gravity Urine 1.007 (1.000-1.030); Urobilinogen Urine Negative (Negative)
[2019-06-08] MEDS ORDERED: OXYCODONE HCL IR 5 MG TAB (IMMEDIATE RELEASE) PO PRN (19:00)
[2019-06-08] MEDS ORDERED: MoRPHine SULFATE 4 MG/ML 1 ML CARP\\VIAL IV PRN (19:00)
[2019-06-08] MEDS ORDERED: BISACODYL 5 MG TABEC PO ONE (19:00)
[2019-06-08] MEDS: DOCUSATE SODIUM 100 MG CAP PO SCH (20:06)
[2019-06-08] MEDS: SODIUM CHLORIDE 0.9% 1000ML 1,000 ML IV SCH (20:06)
[2019-06-09] MEDS: SODIUM CHLORIDE 0.9% 1000ML 1,000 ML IV SCH ×3 (03:52→19:20)
[2019-06-09 07:11] LABS: Hemoglobin 11.2 g/dL (12.0-16.0); Mean Corpuscular Volume 85.8 fL (80-100); Mean Platelet Volume 8.1 fL (7.4-10.4); Platelet Count 232 K/uL (130-400); RDW Coefficient of Variation 12.9 % (11.5-14.5); Red Blood Count 3.73 M/uL (4.2-5.4); White Blood Count 8.26 K/uL (4.8-10.8)
[2019-06-09] MEDS: DOCUSATE SODIUM 100 MG CAP PO SCH ×2 (07:27→20:55)
[2019-06-09] MEDS: POLYETHYLENE (MIRALAX) 17 GM PACK PO SCH ×2 (07:28→10:55)
[2019-06-09 07:42] LABS: BUN Creatinine Ratio 12.3 (10-20); Calcium 8.3 mg/dl (8.5-10.1); Creatinine Clr Calc Pharmacy 54.6 ml/min; Est GFR (African American) 65.9; Est GFR (Non-African American) 56.9; Potassium 4.2 mmol/L (3.5-5.1)
--- NOTE | 2019-06-09 08:26 | Urology Consultation ---
Date of Consultation June 09, 2019 Assessment & Plan (1) Ureteral stone with hydronephrosis: 54yo F with persisting 7mm prox right ureteral stone, moderate hydronephrosis, failed outpatient ESWL. Again, pt is nontoxic with pain controlled at present time. No leukocytosis, with creatinine WNL. We discussed options for treatment, recommend moving forward with formal treatment. Pt is agreeable to proceed with cystoscopy, right retrograde pyelogram, right ureteroscopy, laser lithotripsy and basket stone extraction, with possible dilation and right ureteral stent placement tomorrow with Dr. Gay. Risks and benefits reviewed. Pt verbalizes understanding. Preop CXR and EKG completed last week. Will cover preo with IV ciprofloxacin. Okay for diet today then NPO after midnight. Please reconsult our service urgently if patient develops fever >101F, intractable pain or vomiting. History of Present Illness Reason for Consultation: stone Requesting Physician: Dr. Whitehead Attending Physician: Rafaela Whitehead MD History of Present Illness 54yo F with hx of hyperlipidemia and stones was admitted through [facility] ED last evening with c/o persistent right flank pain. at bedside. She underwent ESWL procedure on Friday, pain persisted until it was no longer tolerable prompting her readmission. Unfortunately, her stone has not broken up on repeat KUB. She is nontoxic, well appearing on exam today. She denies f/c/n/v. Pain is currently controlled with IV pain control. Denies hematuria or LUTS. Allergies Allergy/AdvReac Type Severity Reaction Status Date / Time Bactrim Allergy Intermediate RASH Verified 11/25/14 06:25 sulfamethoxazole Allergy Intermediate RASH Verified 06/08/19 16:11 trimethoprim Allergy Intermediate RASH Verified 06/08/19 16:11 Home Medications Home Medications Medication Instructions Recorded Confirmed Type rosuvastatin 5 mg PO DAILY 06/03/19 06/08/19 History oxycodone-acetaminophen [Percocet] 1 tab PO Q6H PRN #20 tab 06/04/19 06/08/19 Rx acetaminophen [Tylenol Extra 500 mg PO QID PRN 06/08/19 06/08/19 History Strength] Patient History Medical History Dyslipidemia (Chronic) Surgical History History of (Chronic) Family History Mother Breast cancer Father Diabetes Heart disease Hypertension Social History Preferred Language: [place] Rican Communication Ability: Effective 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 Beliefs That Will Affect Care: None Current Living Situation: Spouse Other Information That Helps Us Care for You: No Feels Safe at Home: Yes Safety Concerns: Feels Safe At This Time Smoking Status: Former smoker Do You Dip or Chew Tobacco: No ; Second Hand Exposure: No ; Tobacco Cessation Education Requested by Patient: No Hx Alcohol Use: Yes Alcohol Intake Frequency: Rarely Hx Substance Use: No Review of Systems Review of Systems: All systems reviewed & are unremarkable except as noted in HPI & below Physical Exam Constitutional: no acute distress and not ill appearing Eyes: no nystagmus ENMT: Ears: no hearing impairment Neck: trachea midline Respiratory: no respiratory distress and no cough Cardiovascular: Vessels: no JVD Chest (Breasts): Chest: normal inspection of chest Gastrointestinal (Abdomen): Inspection/Auscultation: abdomen not distended and no abdominal edema Percussion/Palpation: abdomen soft; abdomen nontender Musculoskeletal: Head/Neck/Chest: normocephalic and head atraumatic Skin: no rashes, warm and dry Neurologic: awake; not confused and not obtunded Psychiatric: Orientation: alert and oriented x 3 Eye Contact: good eye contact Affect: no depressed affect Lymphatic: no lymphadenopathy and no lymphedema Results & Data Vital Signs (Past 12 Hours) Vital Signs Temp Pulse Resp BP Pulse Ox 06/09/19 07:12 36.8 C 70 16 127/78 96 06/08/19 23:20 37.0 C 81 16 124/74 96
--- NOTE | 2019-06-09 16:21 | Hospitalist Progress Note ---
Date of Service June 09, 2019 Assessment & Plan (1) Renal calculi: Present on admission with right flank pain and abdominal discomfort had lithotripsy on 06/04 for a 6 mm proximal right ureteral calculi KUB x-ray doen in the ER showed unchanged right ureteral calculi Urology on board and plan to proceed with cystoscopy, right retrograde pyelogram, right ureteroscopy, laser lithotripsy and basket stone extraction, with possible dilation and right ureteral stent placement Continue IVF Will make NPO after midnight (2) Constipation: Possible related to narcotic use Continue laxitive (3) Dyslipidemia: Continue statin (4) DVT prophylaxis: SCDs, ambulate Subjective Pt was seen and examined Sitting in bed with no distress Pt said that she feels fine She has been walking in the hallway Denies any chest pain, palpitation, dizziness and SOB Physical Exam Physical Exam: General- No acute distress Head- atraumatic Eyes- PERRL, EOMI, ENT- oropharynx clear Neck- supple, no JVD Lungs- clear to auscultation Heart- regular rhythm; no murmur Abdomen- normal bowel sounds, soft, nontender Extremities- no calf tenderness Neuro- alert, oriented x 3; PERRL, EOMI; no facial palsy; no dysarthria Skin- warm & dry Results & Data Vital Signs (Past 12 Hours) Vital Signs Temp Pulse Resp BP Pulse Ox 06/09/19 15:36 37 C 73 18 145/84 H 98 06/09/19 07:12 36.8 C 70 16 127/78 96
[2019-06-09] MEDS: ACETAMINOPHEN 325 MG TAB PO PRN (20:54)
[2019-06-10] MEDS: SODIUM CHLORIDE 0.9% 1000ML 1,000 ML IV SCH ×3 (03:12→21:08)
[2019-06-10] MEDS: ACETAMINOPHEN 325 MG TAB PO PRN ×2 (04:31→15:29)
[2019-06-10] MEDS ORDERED: CIPROFLOXACIN 400 MG/200 ML BAG IV SCH (06:00)
[2019-06-10] MEDS: DOCUSATE SODIUM 100 MG CAP PO SCH ×2 (08:01→21:08)
[2019-06-10] MEDS: POLYETHYLENE (MIRALAX) 17 GM PACK PO SCH (08:01)
--- NOTE | 2019-06-10 08:45 | Urology Progress Note ---
Date of Service June 10, 2019 Assessment & Plan (1) Ureteral stone with hydronephrosis: 54yo F with persisting 7mm prox right ureteral stone, moderate hydronephrosis, failed outpatient ESWL. Pt remains nontoxic and stable. She is NPO awaiting surgery today. Pt remains agreeable to proceed with cystoscopy, right retrograde pyelogram, right ureteroscopy, laser lithotripsy and basket stone extraction, with possible dilation and right ureteral stent placement tomorrow with Dr. Gay. Risks and benefits again reviewed. Pt verbalizes understanding. Preop CXR and EKG completed last week. Will cover preo with IV ciprofloxacin. Will see at time of OR. Subjective 54yo F with persisting 7mm prox right ureteral stone, moderate hydronephrosis, failed outpatient ESWL. She was able to get some sleep last evening, feels rested today. Pain remains controlled with IV medications. Does not feel she has passed any stone fragments. Afebrile with VSS overnight. Review of Systems 2 Review of Systems: All systems reviewed & are unremarkable except as noted in HPI & below Physical Exam Constitutional: no acute distress and not ill appearing Eyes: no nystagmus ENMT: Ears: no hearing impairment Neck: trachea midline Respiratory: no respiratory distress and no cough Cardiovascular: Vessels: no JVD Chest (Breasts): Chest: normal inspection of chest Gastrointestinal (Abdomen): Inspection/Auscultation: abdomen not distended and no abdominal edema Percussion/Palpation: abdomen soft; abdomen nontender Musculoskeletal: Head/Neck/Chest: normocephalic and head atraumatic Skin: no rashes, warm and dry Neurologic: awake; not confused and not obtunded Psychiatric: Orientation: alert and oriented x 3 Eye Contact: good eye contact Affect: no depressed affect Lymphatic: no lymphadenopathy and no lymphedema Results & Data Vital Signs (Past 12 Hours) Vital Signs Temp Pulse Resp BP BP Pulse Ox 06/10/19 08:00 36.6 C 66 17 113/73 97 06/09/19 23:22 36.8 C 68 16 134/80 97
[2019-06-10] MEDS ORDERED: MIDAZOLAM HCL 1 MG/ML 2ML VIAL ONE (10:41)
[2019-06-10] MEDS ORDERED: fentaNYL citrate 100 MCG/2 ML VIAL ONE (10:42)
--- NOTE | 2019-06-10 10:59 | History & Physical Bridge Note ---
Date of Service June 10, 2019 History & Physical Bridge Note I have examined the patient, reviewed the History & Physical and in the interval since the performance of the History & Physical I have noted the following changes of clinical significance: no changes noted
[2019-06-10] MEDS ORDERED: IOTHALAMATE MEGLUMINE II 17.2% 250 ML VIAL ONE (11:05)
[2019-06-10] MEDS ORDERED: DEXAMETHASONE SOD INJ 4 MG/ML VIAL ONE (11:12)
[2019-06-10] MEDS ORDERED: PROPOFOL IV EMULSION 10 MG/ML 20 ML VIAL IV ONE (11:12)
[2019-06-10] MEDS ORDERED: LIDOCAINE HCL 2% 2 ML VIAL/AMP(20MG/ML) INFIL ONE (11:12)
[2019-06-10] MEDS ORDERED: ONDANSETRON INJ 2 MG/ML 2 ML VIAL ONE (11:12)
--- NOTE | 2019-06-10 11:12 | Anesthesiology Consultation ---
Date of Service June 10, 2019 Assessment & Plan (1) Encounter for pre-operative examination: Chart Review Chart Review: Acceptable Risk for Surgery and Patient NOT seen in Pre Admission Testing Consults Requested none ASA ASA2 Proposed Anesthesia Anesthesia Type: General Risk / Benefits Reviewed With: PT / POA / Parent / Guardian, Accepts Plan and Informed Consent Obtained History Surgery Operation Date: 06/10/19 12:15 Proposed Procedures p Cystoscopy, Right Retrograde Pyelogram, Right Ureteroscopy, Laser Lithotripsy Basket Stone Extraction, Possible Dilation, Right Ureteral Stent Placement - Juan A Gay MD Height/Weight Height: 5 ft 2 in Weight: 72.8 kg Allergies Allergy/AdvReac Type Severity Reaction Status Date / Time Bactrim Allergy Intermediate RASH Verified 11/25/14 06:25 sulfamethoxazole Allergy Intermediate RASH Verified 06/08/19 16:11 trimethoprim Allergy Intermediate RASH Verified 06/08/19 16:11 Medications Home Medications Medication Instructions Recorded Confirmed Last Taken rosuvastatin 5 mg PO DAILY 06/03/19 06/08/19 06/08/19 08:00 oxycodone-acetaminophen [Percocet] 1 tab PO Q6H PRN #20 tab 06/04/19 06/08/19 06/08/19 03:30 acetaminophen [Tylenol Extra 500 mg PO QID PRN 06/08/19 06/08/19 06/08/19 07:00 Strength] ciprofloxacin HCl [Cipro] 500 mg PO BID #6 tab 06/10/19 Unknown oxycodone-acetaminophen 1 tab PO Q6H PRN #14 tab 06/10/19 Unknown phenazopyridine [Pyridium] 200 mg PO Q8H PRN #20 tab 06/10/19 Unknown potassium citrate [Urocit-K 10] 10 meq PO BID #60 tab 06/10/19 Unknown tamsulosin 0.4 mg PO HS #30 cap 06/10/19 Unknown Active Medications Generic Name Dose Route Start Last Admin Trade Name Freq PRN Reason Stop Dose Admin Acetaminophen 650 mg 06/08/19 19:00 06/10/19 04:31 Tylenol PO 07/08/19 18:59 650 mg Q4H PRN Administration pain/fever Docusate Sodium 100 mg 06/08/19 21:00 06/10/19 08:01 Colace PO 07/08/19 20:59 Not Given BID ANNIE Sodium Chloride 1,000 mls @ 125 mls/hr 06/08/19 19:15 06/10/19 11:04 Nss 1000ml IV 07/08/19 19:14 Infused .Q8H ANNIE Infusion Polyethylene Glycol 17 gm 06/09/19 09:00 06/10/19 08:01 Miralax Powder Packet PO 07/09/19 08:59 Not Given DAILY ANNIE NPO Date Last Intake of Fluids: 06/09/19 Time Last Intake of Fluids: 23:45 Date Last Intake of Solids: 06/09/19 Time Last Intake of Solids: 18:00 Past Medical History Medical History Dyslipidemia (Chronic) Exercise / Class Metabolic Activity II 4-5 Yardwork/Stairs/Walk up hill Past Family History Family History Mother Breast cancer Father Diabetes Heart disease Hypertension Past Surgical History Surgical History History of (Chronic) H/O lithotripsy Past Anesthesia History No Hx of Anesthesia Complications and No Family Hx of Anesthesia Complications History of PONV No Hx of PONV and No Hx of Motion Sickness Social History Smoking Status: Former smoker Do You Dip or Chew Tobacco: No Hx Alcohol Use: Yes alcohol intake frequency: holidays/special occasions only Hx Substance Use: No substance use type: does not use Review of Systems Patient denies active symptoms of GERD. Negative for chest pain or shortness of breath. Physical Exam Vital Signs Last Vital Signs Temp 37 C 06/10/19 10:17 Pulse 72 06/10/19 10:17 Resp 20 06/10/19 10:17 BP 148/82 H 06/10/19 10:17 Pulse Ox 98 06/10/19 10:17 Constitutional not obese ENMT Mouth: no TMJ abnormality and oral opening not small Thyromental Distance: > or= 3.5 Finger Breadths Mallampati Class: I Neck normal visual inspection; neck extension not limited Respiratory normal respiratory effort Auscultation: lungs clear to auscultation bilaterally Cardiovascular Rate/Rhythm: regular rate and regular rhythm Heart Sounds: no murmur Neurologic moves all extremities Psychiatric Orientation: alert and oriented x 3 Testing Laboratory Results 06/09/19 06:58 06/09/19 06:58 Urine Color Yellow 06/08/19 17:56 Urine Appearance Clear (Clear) 06/08/19 17:56 Urine pH 7.0 (4.5-7.5) 06/08/19 17:56 Ur Specific [place] 1.007 (1.000-1.030) 06/08/19 17:56 Urine Protein Negative (Negative) 06/08/19 17:56 Urine Glucose (UA) Negative (Negative) 06/08/19 17:56 Urine Ketones Trace (Negative) H 06/08/19 17:56 Urine Nitrite Negative (Negative) 06/08/19 17:56 Ur Leukocyte Esterase Negative (Negative) 06/08/19 17:56
--- NOTE | 2019-06-10 11:45 | Operative Report ---
Post Operative Report Pre & Post Diagnosis Operation Date: 06/10/19 12:15 Preoperative diagnosis: Refractory right upper ureteral stone. Postoperative diagnosis: Same. Procedure: Cystoscopy, right flexible ureteroscopy with laser lithotripsy, basket stone extraction and ureteral stent placement. Surgeon: Dr. Juan A Gay. Anesthesia: General anesthesia with laryngeal mask. Complications: None. Specimen sent pathology: Right ureteral stone fragments for chemical analysis. Drains left in place: 6 [place] 24 cm loop stent on the right-hand side in good position on fluoroscopy. Findings: Good stent position after completion of case. EBL: Minimal. Specimen sent to pathology: Right renal stone fragments for chemical analysis. Procedure Operation Date: 06/10/19 12:15 Brief history: 54-year-old female, known to our service with a history of difficulties with a right ureteral stone for approximately a week. She underwent extracorporeal shockwave lithotripsy to the stone less than a week ago without significant fragmentation or success and was readmitted for recurrent colic and pain. She is being brought to the operating room today for endoscopic management of her stone. Please see urology consultation and progress notes for further details. Intravenous ciprofloxacin is provided for antibiotic coverage and SCDs used for DVT prophylaxis. Procedure: Patient was properly identified and brought into the operative suite after identification of appropriate consent in the chart. General anesthesia with laryngeal mask was initiated and patient was prepped and draped in standard fashion for this procedure. Full timeout procedure was followed. 22 [place] rigid cystoscope was passed into the bladder under direct visualization and bladder was surveyed in its entirety demonstrating no intravesical lesions, papillary masses or calculi. Ureteral orifices were appreciated to be in the normal anatomic location bilaterally. Right-sided ureteral orifice was addressed using an open-ended catheter and a sensor tip wire was advanced up to level of the right kidney where was kept until the end of the case as a safety wire. This was followed by an Amplatz working wire and then a 12/14 [place] 28 cm ureteral access sheath. Fiberoptic flexible ureteroscope was advanced up to the level of the right kidney and complete pyeloscopy was performed. The patient's 7 mm ureteral stone was appreciated to be retropulsed into the kidney where it was visualized in the upper pole. Using a 200 m laser fiber this was fragmented into 3 distinct pieces which were able to be grasped using an open backed basket and removed from the patient intact. These were sent for chemical analysis. Pyeloscopy was repeated demonstrating no residual ureteral stones consistent with the patient's previous imaging findings including CT scan and KUB. Complete exit ureteroscopy was performed demonstrating some edema at the level of the patient's proximal stone impaction and tightness of the distal ureter without ureteral tears, tumors or residual calculi. Cystoscope was backloaded over the patient's safety wire and a 6 [place] 24 cm loop stent was advanced with a full coil being present at the level of the renal pelvis and redundant loops being present within the bladder. Hydronephrotic drip was appreciated. Bladder was drained and cystoscope was removed. Anesthesia was reversed and patient was transferred to the recovery room in stable condition. Follow-up CARE: Prescriptions for ciprofloxacin, Percocet and Pyridium are provided in the chart. Will arrange for outpatient cystoscopy and stent removal with KUB beforehand. Patient can be discharged home later today after taking p.o. diet as long as she is comfortable on oral medications. Care is discussed with the patient and the patient's perioperatively who vocalized good understanding of the treatment plan. Surgeon Juan A Gay MD Order Builder None Estimated Blood Loss 0 Findings Consistent with Post-Op Diagnosis Specimens Right renal stone fragments for chemical analysis Description of Procedure Cystoscopy, right flexible ureteroscopy with laser lithotripsy, basket stone extraction and ureteral stent placement. I attest to the content of the Intraoperative Record and any orders documented therein. Any exceptions are noted below.
[2019-06-10] MEDS ORDERED: BELLADONNA/OPIUM SUPP 60 MG SUPP PR ONE (12:11)
[2019-06-10] MEDS ORDERED: fentaNYL citrate 100 MCG/2 ML VIAL IV PRN (12:41)
[2019-06-10] MEDS ORDERED: ePHEDrine sulfate 50 MG/ML AMP IV PRN (12:41)
[2019-06-10] MEDS ORDERED: ONDANSETRON INJ 2 MG/ML 2 ML VIAL IV PRN (12:41)
[2019-06-10] MEDS ORDERED: ATROPINE SULFATE 0.1 MG/ML 10ML SYR IV PRN (12:41)
--- NOTE | 2019-06-10 12:59 | Anesthesiology Progress Note ---
Date of Service June 10, 2019 Anesthesia Post Procedure Vital Signs Vital Signs: Temp Pulse Pulse Pulse Resp BP BP 06/10/19 12:50 67 14 156/86 H 06/10/19 12:40 70 16 152/90 H 06/10/19 12:30 80 22 158/88 H 06/10/19 12:22 36.9 C 71 18 158/87 H 06/10/19 10:17 37 C 72 20 148/82 H 06/10/19 08:00 36.6 C 66 17 113/73 06/09/19 23:22 36.8 C 68 16 134/80 06/09/19 15:36 37 C 73 18 145/84 H Pulse Ox 06/10/19 12:50 96 06/10/19 12:40 98 06/10/19 12:30 100 06/10/19 12:22 100 06/10/19 10:17 98 06/10/19 08:00 97 06/09/19 23:22 97 06/09/19 15:36 98 Pain Intensity Abdomen: Pain Intensity: 3 Transfer of Care Handoff Completed per policy Notes Mental Status: alert / awake / arousable and participated in evaluation Patient Amnestic to Procedure: Yes Nausea / Vomiting: adequately controlled Pain: adequately controlled Airway Patency, RR, SpO2: stable & adequate BP & HR: stable & adequate Hydration State: stable & adequate Anesthetic Complications: no major complications apparent and Pt Satisfied with anesthetic care
[2019-06-10] MEDS ORDERED: PHENAZOPYRIDINE HCL 200 MG TAB PO PRN (13:11)
--- NOTE | 2019-06-10 13:12 | Fluoroscopy Report ---
FL KUB HISTORY: CYSTO, RIGHT RETROGRADE,LASER,STENT FLUOROSCOPY TIME: 43 seconds FINDINGS: 4 fluoroscopic spot images were submitted for review. Right-sided lithotripsy and right ure teral stent placement was performed in a retrograde fashion. The proximal portion of the stent is vis ualized and appears in good position. IMPRESSION: Fluoroscopy provided for right-sided lithotripsy and ureteral stent placement. Electronically signed by: Jamar Olguin M.D. 06/10/2019 1:11 PM
--- NOTE | 2019-06-10 18:35 | Hospitalist Progress Note ---
Date of Service June 10, 2019 Assessment & Plan (1) Renal calculi: Present on admission with right flank pain and abdominal discomfort had lithotripsy on 06/04 for a 6 mm proximal right ureteral calculi KUB x-ray doen in the ER showed unchanged right ureteral calculi S/P Cystoscopy, right flexible ureteroscopy with laser lithotripsy, basket stone extraction and ureteral stent placement performed today by Dr. Gay Continue IVF Will monitor (2) Constipation: Possible related to narcotic use Continue laxative (3) Dyslipidemia: Continue statin (4) DVT prophylaxis: SCDs, ambulate Disposition Will discharge home tomorrow Subjective Pt was seen and examined Lying in bed with no distress Pt said that she feels ok Just had procedure done today Denies any chest pain, palpitation and SOB Physical Exam Physical Exam: General- No acute distress Head- atraumatic Eyes- PERRL, EOMI, ENT- oropharynx clear Neck- supple, no JVD Lungs- clear to auscultation Heart- regular rhythm; no murmur Abdomen- normal bowel sounds, soft, nontender Extremities- no calf tenderness Neuro- alert, oriented x 3; PERRL, EOMI; no facial palsy; no dysarthria Skin- warm & dry Results & Data Vital Signs (Past 12 Hours) Vital Signs Temp Pulse Pulse Resp BP Pulse Ox 06/10/19 17:06 36.8 C 80 15 120/73 95 06/10/19 16:17 36.8 C 80 15 120/73 95 06/10/19 15:16 56 L 16 151/83 H 96 06/10/19 14:10 36.9 C 58 L 16 155/81 H 95 06/10/19 13:43 36.7 C 57 L 16 159/78 H 95 06/10/19 13:12 36.8 C 68 18 156/79 H 94 06/10/19 13:00 36.6 C 61 20 157/91 H 96 06/10/19 12:50 67 14 156/86 H 96 06/10/19 12:40 70 16 152/90 H 98 06/10/19 12:30 80 22 158/88 H 100 06/10/19 12:22 36.9 C 71 18 158/87 H 100 06/10/19 10:17 37 C 72 20 148/82 H 98 06/10/19 08:00 36.6 C 66 17 113/73 97
[2019-06-11] MEDS: SODIUM CHLORIDE 0.9% 1000ML 1,000 ML IV SCH (03:44)
[2019-06-11 07:57] LABS: Hemoglobin 10.2 g/dL (12.0-16.0); Mean Corpuscular Hemoglobin 29.4 pg (25-34); Mean Corpuscular Volume 86.5 fL (80-100); Mean Platelet Volume 9.2 fL (7.4-10.4); Platelet Count 251 K/uL (130-400); RDW Coefficient of Variation 12.7 % (11.5-14.5); RDW Standard Deviation 40.6 fL (36.4-46.3); Red Blood Count 3.47 M/uL (4.2-5.4)
--- NOTE | 2019-06-11 08:18 | Anesthesiology Progress Note ---
Date of Service June 11, 2019 Anesthesia Post Procedure Vital Signs Vital Signs: Temp Pulse Pulse Resp BP Pulse Ox 06/11/19 07:30 36.7 C 60 14 132/78 97 06/11/19 03:54 65 06/11/19 03:52 36.8 C 53 L 16 137/75 96 06/10/19 23:26 36.9 C 65 16 133/75 95 06/10/19 19:54 36.6 C 54 L 17 152/82 H 97 06/10/19 17:06 36.8 C 80 15 120/73 95 06/10/19 16:17 36.8 C 80 15 120/73 95 06/10/19 15:16 56 L 16 151/83 H 96 06/10/19 14:10 36.9 C 58 L 16 155/81 H 95 06/10/19 13:43 36.7 C 57 L 16 159/78 H 95 06/10/19 13:12 36.8 C 68 18 156/79 H 94 06/10/19 13:00 36.6 C 61 20 157/91 H 96 06/10/19 12:50 67 14 156/86 H 96 06/10/19 12:40 70 16 152/90 H 98 06/10/19 12:30 80 22 158/88 H 100 06/10/19 12:22 36.9 C 71 18 158/87 H 100 06/10/19 10:17 37 C 72 20 148/82 H 98 Pain Intensity Abdomen: Pain Intensity: 0 Notes Mental Status: alert / awake / arousable and participated in evaluation Patient Amnestic to Procedure: Yes Nausea / Vomiting: adequately controlled Pain: adequately controlled Airway Patency, RR, SpO2: stable & adequate BP & HR: stable & adequate Hydration State: stable & adequate Anesthetic Complications: no major complications apparent and Pt Satisfied with anesthetic care
[2019-06-11 08:31] LABS: BUN Creatinine Ratio 12.4 (10-20); Calcium 8.6 mg/dl (8.5-10.1); Creatinine Clr Calc Pharmacy 100.1 ml/min; Est GFR (African American) 119.8; Est GFR (Non-African American) 103.3; Potassium 3.6 mmol/L (3.5-5.1)
[2019-06-11] MEDS: POLYETHYLENE (MIRALAX) 17 GM PACK PO SCH (08:35)
[2019-06-11] MEDS: DOCUSATE SODIUM 100 MG CAP PO SCH (08:35)
--- NOTE | 2019-06-11 10:26 | Urology Progress Note ---
Date of Service June 11, 2019 Assessment & Plan (1) Ureteral stone with hydronephrosis: 54yo F POD #1 s/p cysto, right URS, LL, right stent placement. Pt is doing very well today and feels ready for discharge. Expected clinical course reviewed, all questions answered. Okay to discharge home from standpoint with abx, pain control. Stent removal appt made for 06/22 at 3:15PM at [address] - added to discharge instructions. Thank you for allowing us to participate in the acute care of Ms. Cash. Subjective 54yo F POD #1 s/p cysto, right URS, LL, right stent placement. Pt doing very well this AM. Ambulating in halls independently. States she feels much better, pain controlled. Tolerating PO without issue. Noticed some blood tinged urine, otherwise no major LUTS or stent irritation Review of Systems Review of Systems: All systems reviewed & are unremarkable except as noted in HPI & below Physical Exam Constitutional: no acute distress and not ill appearing Eyes: no nystagmus ENMT: Ears: no hearing impairment Neck: trachea midline Respiratory: no respiratory distress and no cough Cardiovascular: Vessels: no JVD Chest (Breasts): Chest: normal inspection of chest Gastrointestinal (Abdomen): Inspection/Auscultation: abdomen not distended and no abdominal edema Percussion/Palpation: abdomen soft; abdomen nontender Musculoskeletal: Head/Neck/Chest: normocephalic and head atraumatic Skin: no rashes, warm and dry Neurologic: awake; not confused and not obtunded Psychiatric: Orientation: alert and oriented x 3 Eye Contact: good eye contact Affect: no depressed affect Lymphatic: no lymphadenopathy and no lymphedema Results & Data Vital Signs (Past 12 Hours) Vital Signs Temp Pulse Pulse Resp BP Pulse Ox 06/11/19 07:30 36.7 C 60 14 132/78 97 06/11/19 03:54 65 06/11/19 03:52 36.8 C 53 L 16 137/75 96 06/10/19 23:26 36.9 C 65 16 133/75 95
--- NOTE | 2019-06-11 11:45 | Hospitalist Progress Note ---
Date of Service June 11, 2019 Assessment & Plan (1) Renal calculi: Present on admission with right flank pain and abdominal discomfort had lithotripsy on 06/04 for a 6 mm proximal right ureteral calculi KUB x-ray doen in the ER showed unchanged right ureteral calculi S/P day 1 Cystoscopy, right flexible ureteroscopy with laser lithotripsy, basket stone extraction and ureteral stent placement performed today by Dr. Gay Follow up with PCP for stent removal Clinically stable (2) Constipation: Possible related to narcotic use Continue laxative (3) Dyslipidemia: Continue statin (4) DVT prophylaxis: SCDs, ambulate Disposition Discharge home today Subjective Pt was seen and examined Lying in bed with no distress with at bedside Pt said that she feels fine Denies any chest pain, palpitation, dizziness and SOB Physical Exam Physical Exam: General- No acute distress Head- atraumatic Eyes- PERRL, EOMI, ENT- oropharynx clear Neck- supple, no JVD Lungs- clear to auscultation Heart- regular rhythm; no murmur Abdomen- normal bowel sounds, soft, nontender Extremities- no calf tenderness Neuro- alert, oriented x 3; PERRL, EOMI; no facial palsy; no dysarthria Skin- warm & dry Results & Data Vital Signs (Past 12 Hours) Vital Signs Temp Pulse Pulse Resp BP Pulse Ox 06/11/19 07:30 36.7 C 60 14 132/78 97 06/11/19 03:54 65 06/11/19 03:52 36.8 C 53 L 16 137/75 96
--- NOTE | 2019-06-12 07:54 | Discharge Summary ---
Date of Service June 11, 2019 Admission HPI Per Admitting Provider 54-year-old female who presents to the ED for evaluation of right flank pain. Patient was recently admitted to [facility] 06/03 through 06/04 after she was found to have a 6 mm proximal right ureteral calculi with moderate hydronephrosis. Patient underwent lithotripsy on 06/04 and patient was discharged the same day. Patient reports she has had continued pain since returning home. She denies hematuria or dysuria. Due to the pain, she has had nausea and one episode of vomiting. She denies hematemesis or coffee-ground emesis. No abdominal pain. No fevers or chills. She denies chest pain and shortness of breath. No lightheadedness, dizziness, diaphoresis, syncopal events. She reports constipation and has been taking MiraLAX and stool softeners however has not had a bowel movement. She reports that she is passing gas. In the ED, KUB shows unchanged 6 mm right ureteral calculus. Labs are unremarkable. Patient was given IVF and IV Toradol. Admission Exam Per Admitting Provider Constitutional: WD/WN, vitals as above Eyes: PERRL, conjunctivae normal, anicteric sclerae ENMT: external ear and nose normal, oropharynx normal Respiratory: normal respiratory effort, lungs clear to auscultation Cardiovascular: regular rate and regular rhythm Vessels: normal peripheral pulses Extremities: no edema Gastrointestinal: normal bowel sounds, soft, nontender, no hepatosplenomegaly Musculoskeletal: no cyanosis or clubbing, extremities motor strength 5/5 Skin: no rashes, warm and dry Neurologic: PERRL, EOMI, accommodation nl, no face palsy, no dysarthria Psychiatric: A+Ox3, euthymic affect Genitourinary: no CVA tenderness Principal Diagnosis Right ureteral stone s/p ureteroscopy, laser lithotripsy and stent placement. Dyslipidemia Discharge Exam General- No acute distress Head- atraumatic Eyes- PERRL, EOMI, ENT- oropharynx clear Neck- supple, no JVD Lungs- clear to auscultation Heart- regular rhythm; no murmur Abdomen- normal bowel sounds, soft, nontender Extremities- no calf tenderness Neuro- alert, oriented x 3; PERRL, EOMI; no facial palsy; no dysarthria Skin- warm & dry Discharge Data Allergies Allergy/AdvReac Type Severity Reaction Status Date / Time Bactrim Allergy Intermediate RASH Verified 11/25/14 06:25 sulfamethoxazole Allergy Intermediate RASH Verified 06/08/19 16:11 trimethoprim Allergy Intermediate RASH Verified 06/08/19 16:11 Consultations 06/08/19 16:45 ED Decision to Admit Stat 06/08/19 19:00 Consult Urology Routine Procedures Performed Operation Date: 06/10/19 12:15 Actual Procedures p Cystoscopy, Right Flexible Ureteroscopy, Laser Lithotripsy, Basket Stone Extraction, (Right) - Juan A Gay MD s Right Ureteral Stent Placement(Right) - Juan A Gay MD Ordered Studies 06/10/19 10:00 FL fluoroscopy <1hr Routine 06/10/19 12:15 FL KUB Routine FL KUB HISTORY: CYSTO, RIGHT RETROGRADE,LASER,STENT FLUOROSCOPY TIME: 43 seconds FINDINGS: 4 fluoroscopic spot images were submitted for review. Right-sided lithotripsy and right ureteral stent placement was performed in a retrograde fashion. The proximal portion of the stent is visualized and appears in good position. IMPRESSION: Fluoroscopy provided for right-sided lithotripsy and ureteral stent placement. Electronically signed by: Jamar Olguin M.D. 06/10/2019 1:11 PM Dictated: 06/10/19 1310 Transcribed: 06/10/19 1310 XR KUB/Abdomen 1 view CLINICAL HISTORY: Constipation, abdominal pain pain COMPARISON STUDY: 06/03/2019 FINDINGS: Nonobstructive bowel pattern. Moderate increase in fecal load within the ascending and proximal to mid transverse colonic region. 6 mm calculus of the proximal right ureter is unchanged and overlies the right transverse process of L3. Several pelvic vascular calcifications are unchanged. IMPRESSION: 1. Unchanged proximal right ureteral calculus. 2. Nonobstructive bowel pattern. 3. Moderate increase in fecal load of the proximal to mid colon. The above report was generated using voice recognition software. It may contain grammatical, syntax or spelling errors. Electronically signed by: Dalton Garcia M.D. 06/08/2019 4:07 PM Dictated: 06/08/19 1605 Transcribed: 06/08/19 1605 Hospital Course (1) Renal calculi: Present on admission with right flank pain and abdominal discomfort had lithotripsy on 06/04 for a 6 mm proximal right ureteral calculi KUB x-ray doen in the ER showed unchanged right ureteral calculi S/P day 1 Cystoscopy, right flexible ureteroscopy with laser lithotripsy, basket stone extraction and ureteral stent placement performed today by Dr. Gay Follow up with PCP for stent removal Clinically stable (2) Constipation: Possible related to narcotic use Continue laxative (3) Dyslipidemia: Continue statin (4) DVT prophylaxis: SCDs, ambulate Disposition Discharge home today Total Time Total Time Spent Total Time Spent (In Minutes): 35 minutes Total Time Includes: Examination of the Patient, Discharge Planning, Medication Reconciliation, Communication With Other Providers and Other Discharge Plan Discharge Items Patient Disposition: Home - Self-Care Reason For Visit: RENAL CALCULI Discharge Diagnosis: Right ureteral stone s/p ureteroscopy, laser lithotripsy and stent placement. Condition: Good Discharge Goals: Decrease discomfort, Diagnostic testing and Therapeutic intervention Activity: As commented below Lifting: Gradually increase as tolerated and No more than 25 pounds Bathing: No limitations Sexual Activity: When tolerated Exercise/Sports: Rest today and Gradually increase as tolerated Driving/Machine Use: Resume 1 day after discharge Non-emergency contact: Urologist Call non-emergency contact if: you have any medication questions, your symptoms worsen, your pain is not controlled, your pain is worsening, your pain is unusual for you, your pain is concerning for you, you have a fever and your temperature is above 101 Follow-up/Referrals: Juan A Gay MD [Physician] - 06/22/19 3:15 pm Rosio Velazquez MD [Primary Care Provider] - Diet: Regular Diet Comment: good fluid intake Addtl Provider Instructions: Follow up with your primary care provider Dr. Velazquez on 06/17 @ 11:45 AM Call office for appointment for removal of stent ([phone]) with urology Please do not drive or operate any machine after taking oxycodone Please hold next dose of oxycodone if you become drowsy and lethargy Prescriptions: New ciprofloxacin HCl [Cipro] 500 mg tablet 500 mg PO BID Qty: 6 RF: 0 phenazopyridine [Pyridium] 200 mg tablet 200 mg PO Q8H PRN (Reason: pain) Qty: 20 RF: 0 oxycodone-acetaminophen 5-325 mg tablet 1 tab PO Q6H PRN (Reason: pain) Qty: 14 RF: 0 tamsulosin 0.4 mg capsule 0.4 mg PO HS Qty: 30 RF: 0 potassium citrate [Urocit-K 10] 10 mEq (1,080 mg) tablet extended release 10 meq PO BID Qty: 60 RF: 3 Continued rosuvastatin 5 mg tablet 5 mg PO DAILY RF: 0 oxycodone-acetaminophen [Percocet] 7.5-325 mg tablet 1 tab PO Q6H PRN (Reason: pain) Qty: 20 RF: 0 acetaminophen [Tylenol Extra Strength] 500 mg Tablet 500 mg PO QID PRN (Reason: Pain) RF: 0 Stand-Alone Forms: [facility] [employer], [facility], Important Visit Information Discharge Orders: Discharge Order (Routine); Ordered 06/10/19 Ordered By: Juan A Gay Admission Data Admit Date/Time: 06/08/19 17:33 Attending Provider: Rafaela Whitehead Admit Provider: Rafaela Whitehead Primary Care Provider: Rosio Velazquez Other Providers: Rafaela Whitehead ; Juan A Gay I. Service: Medical Other Interventions: Discharge Summary Assessment (RN) Last Done: 06/10/19 17:06 Pending Studies at Discharge: Yes Studies:: Stone analysis. DC Date/Time DO NOT enter until pt leaves facility: 06/11/19 14:07
[2019-06-22 08:25] LABS: Component 2 DNR; Source Kidney
== END 2019-06-11 14:07 | disposition home or self-care (01) ==
LOC: ED 15:06 → INTOOBSV 17:33 → 3W 17:33 → SUATTDRO 17:33 → 3W 18:40